=== PATIENT | male | born 1960 | race African-American/Black ===

== ENCOUNTER 2016-11-15 18:30 | Emergency (ER) | payer BC, OTHER ==
[2016-11-15 18:57] VITALS: BP 155/95; PULSE 85; TEMP 98.5; BMI 28.2
--- NOTE | 2016-11-15 19:05 | PDOC ---
History of Present Illness - General History Source: Patient Exam Limitations: No Limitations - History of Present Illness Initial Comments: 11/15/16 19:23 The patient is a 56 year old male with a significant past medical history of HTN , who presents to the ED with sharp LLQ pain. He describes the pain as 7/10 in severity. Patient states he is experiencing cold sweats and nausea secondary due to the pain. Patient complains of diarrhea since Tuesday as well. Patient denies fever. Patient denies vomiting, diarrhea, hematochezia. Patient denies sick contacts, recent travels. Patient was scheduled for a colonoscopy 6 months ago after having blood in stool. He missed his appointment and never rescheduled. PAST MEDICAL HISTORY: HTN PAST SURGICAL HISTORY: no significant history FAMILY HISTORY: no pertinent history SOCIAL HISTORY: Pt lives with family and is employed. MEDICATIONS: reviewed ALLERGIES: As per nursing notes ROS: General: + cold sweats. No fevers no weakness, no weight loss HEENT: No change in vision. No sore throat,. No ear pain CardioVascular: No chest pain or shortness of breath Respiratory:No cough, or wheezing. Gastrointestinal: + LLQ pain. + nausea. + diarrhea. No vomiting or constipation , No rectal bleeding Genitourinary: No dysuria, hematuria, or frequency Musculoskeletal: No joint or muscle pain or swelling Neurologic: No headache, vertigo, dizziness or loss of consciousness Psychiatric: nor depression Skin: No rashes or easy bruising Endocrine: no increased thirst or abnormal weight change Allergic: no skin or latex allergy All other systems reviewed and normal Exam: General: Well-nourished well-developed individual, no acute distress HEENT: Throat: Normal, tonsils normal, no erythema or exudate Neck: Supple, no meningeal signs, no lymphadenopathy Eyes::Pupils equal reactive and round, extraocular motion intact Chest: Nontender to palpation Cardiac: S1-S2 normal, regular rate and rhythm, no murmurs rubs or gallops Respiratory: Lungs clear to auscultation bilateral Abdomen: Increased bowel sounds. Soft, nondistended, nontender to palpation diffusely Extremities: Warm, dry, no cyanosis, clubbing, or edema Skin: No rashes Neuro: Alert and oriented x3, nonfocal exam, grossly intact, normal gait Psych: Normal mood and affect <Asad Perez - Last Filed: 11/15/16 19:32> - General History Source: Patient Exam Limitations: No Limitations - History of Present Illness Initial Comments: 11/15/16 20:56 A portion of this note was documented by scribe services under my direction. I have reviewed the details of the note, within reason, and agree with the documentation. The case summary and management plan written by me. Abdominal flat and upright films show no dilated loops of bowel but a couple of small air fluid levels otherwise unremarkable CT scan of the abdomen shows a 5 x 2 rods shaped right mid ureteral stone. Assessment and plan: This is a 56-year-old male comes in complaining of left lower quadrant abdominal pain associated with some nausea. Patient is pain-free at this time and has been since he arrived here. Patient's pain is secondary to a kidney stone that is in the mid ureter. Patient given prescriptions for Percocet, Flomax, Zofran and a referral to a urologist. <Jaycob Ng I - Last Filed: 11/15/16 22:29> - General Chief Complaint: Diarrhea Stated Complaint: DIARRHEA WITH LEFT ABDOMINAL CRAMPING Time Seen by Provider: 11/15/16 19:04 Past History <Asad Perez - Last Filed: 11/15/16 19:32> - Past Medical History HTN: Yes (NON COMPLIANT) - Psycho/Social/Smoking Cessation Hx Anxiety: No Suicidal Ideation: No Smoking History: Never smoked Hx Alcohol Use: Yes (RARE) Drug/Substance Use Hx: No Substance Use Type: None <Jaycob Ng I - Last Filed: 11/15/16 22:29> - Past Medical History Allergies/Adverse Reactions: Allergies Allergy/AdvReac Type Severity Reaction Status Date / Time No Known Allergies Allergy Verified 11/15/16 18:51 Home Medications: Ambulatory Orders Lisinopril [Zestril] 2.5 mg PO DAILY 11/15/16 Ondansetron [Zofran *Odt*] 8 mg SL TID PRN #12 od.tablet 11/15/16 Oxycodone HCl/Acetaminophen [Percocet 5-325 mg Tablet] 1 tab PO Q4H PRN #12 tablet MDD 6 11/15/16 Tamsulosin HCl [Flomax] 0.4 mg PO DAILY #24 cap.er.24h 11/15/16 Review of Systems - Review of Systems Able to Perform ROS?: Yes <Asad Perez - Last Filed: 11/15/16 19:32> *Physical Exam - Vital Signs Last Vital Signs Temp Pulse Resp BP Pulse Ox 98.5 F 85 16 155/95 99 11/15/16 18:50 11/15/16 18:50 11/15/16 18:50 11/15/16 18:50 11/15/16 18:50 <Asad Perez - Last Filed: 11/15/16 19:32> - Vital Signs Last Vital Signs Temp Pulse Resp BP Pulse Ox 98.5 F 85 16 155/95 99 11/15/16 18:50 11/15/16 18:50 11/15/16 18:50 11/15/16 18:50 11/15/16 18:50 <Jaycob Ng I - Last Filed: 11/15/16 22:29> ED Treatment Course - LABORATORY CBC & Chemistry Diagram: 11/15/16 19:55 11/15/16 19:55 <Jaycob Ng I - Last Filed: 11/15/16 22:29> *DC/Admit/Observation/Transfer - Attestations Scribe Attestion: 11/15/16 19:25 Documentation prepared by Asad Perez, acting as diagnostic medical sonographer for Jaycob Ng MD. <Asad Perez - Last Filed: 11/15/16 19:32> - Discharge Dispostion Admit: No <Jaycob Ng I - Last Filed: 11/15/16 22:29> Diagnosis at time of Disposition: Kidney stone on left side - Discharge Dispostion Disposition: HOME Condition at time of disposition: Good - Referrals Referrals: Sanchez Escobar [Primary Care Provider] - - Patient Instructions Printed Discharge Instructions: Kidney Stones -- Adult Additional Instructions: For the pain take Percocet one tablet as often as every 4-6 hours if needed. For nausea take Zofran 1 tablet 3 times a day as needed. Take Flomax 1 tablet a day to help keep the urine flowing. Stay well hydrated. Follow-up with a urologist if you need a urologist call Dr. Escamilla at [phone] for an appointment. Return to the emergency department immediately with ANY new, persistent or worsening symptoms. Continue any medications as previously prescribed by your physician. You should follow up with your primary doctor as soon as possible regarding today's emergency department visit. . Please make sure your doctor reviews the results of your emergency evaluation. Thank you for coming to the Emergency Department today for your care. It was a pleasure to see you today. Please note that your evaluation is INCOMPLETE until you follow-up with your doctor.
[2016-11-15 19:49] LABS: URINE APPEARANCE Clear; URINE BILIRUBIN Negative (NEGATIVE); URINE BLOOD 1+ (NEGATIVE); URINE COLOR YELLOW; URINE GLUCOSE (UA) Trace (NEGATIVE); URINE KETONE Negative (NEGATIVE); URINE LEUK ESTERASE Negative (NEGATIVE); URINE NITRITE Negative (NEGATIVE); URINE PROTEIN Negative (NEGATIVE); URINE UROBILINOGEN 0.2 E.U/dl (0.2-1.0)
[2016-11-15 20:09] LABS: BASOPHIL 1.9 % (0-2.0); EOSINOPHIL 0.4 % (0-4.5); MCH 31.7 pg (25.7-33.7); MCHC 34.5 g/dl (32.0-35.9); MEAN PLT VOLUME 9.2 fl (7.5-11.1); NEUTROPHILS 81.7 % (42.8-82.8); PLATELET COUNT 201 K/MM3 (134-434); RDW 11.8 % (11.9-15.9); WHITE BLOOD COUNT 13.1 K/mm3 (4.0-10.0)
[2016-11-15 20:14] LABS: URINE BACTERIA FEW /hpf (NEGATIVE); URINE WBC 0-2 (3-5)
[2016-11-15 20:20] LABS: ALBUMIN 4.7 g/dl (3.5-5.0); ALK PHOS 105 U/L (32-92); ANION GAP 6 (8-16); BILIRUBIN,TOTAL 0.8 mg/dl (0.2-1.0); CALCIUM 9.2 mg/dl (8.4-10.2); CO2 27 mmol/L (22-28); CREATININE 1.1 mg/dl (0.6-1.3); GLUCOSE,RANDOM 188 mg/dl (74-106); SGOT/AST 45 U/L (10-42); SGPT/ALT 34 U/L (10-40); TOT PROT 7.4 g/dl (6.4-8.3)
== END 2016-11-15 22:35 | disposition home or self-care (01) ==
LOC: FER 18:30
DX: N23 Unspecified renal colic (principal); I10 Essential (primary) hypertension
CPT/HCPCS: 36415; 74020-TC; 74177-TC; 80053; 81003; 81015; 83690; 85025; 99282-25

== ENCOUNTER 2020-07-31 17:23 | Emergency (ER) | payer BC, OTHER ==
[2020-07-31 17:37] VITALS: TEMP 98; BMI 29.0
[2020-07-31] MEDS ORDERED: amLODIPine BESYLATE 10 MG TABLET (FP) PO ONE (17:59)
[2020-07-31] MEDS ORDERED: amLODIPine BESYLATE 5 MG TABLET (FP) ONE (18:01)
[2020-07-31 18:32] LABS: INR 1.07 (0.83-1.09); PROTHROMBIN TIME (PATIENT) 12.9 SEC (9.7-13.0)
[2020-07-31 18:34] LABS: BASO % 1.8 % (0-2.0); EOS % 2.3 % (0-4.5); HEMATOCRIT 46.4 % (35.4-49); HEMOGLOBIN 15.9 GM/dL (11.7-16.9); LYMPH % 28.2 % (8-40); MCH 32.1 pg (25.7-33.7); MCHC 34.3 g/dl (32.0-35.9); MEAN CELL VOLUME 93.7 fl (80-96); MEAN PLT VOLUME 9.9 fl (7.5-11.1); NEUT % 61.7 % (42.8-82.8); PLATELET COUNT 168 K/MM3 (134-434); RBC 4.95 M/mm3 (4.00-5.60); RDW 13.1 % (11.9-15.9); WHITE BLOOD COUNT 7.2 K/mm3 (4.0-10.0)
[2020-07-31 18:42] LABS: POTASSIUM 3.9 mmol/L (3.5-5.1)
[2020-07-31 18:45] LABS: BLOOD UREA NITROGEN 10.8 mg/dL (7-18); CALCIUM 9.2 mg/dL (8.5-10.1)
[2020-07-31 18:48] LABS: CREATININE 1.1 mg/dL (0.55-1.3)
[2020-07-31 18:50] LABS: BILIRUBIN,TOTAL 0.4 mg/dL (0.2-1); TOT PROT 7.2 g/dl (6.4-8.2)
[2020-07-31] MEDS ORDERED: INSULIN REGULAR HUMAN 100 UNITS/ML *VIAL SQ ONE (18:56)
[2020-07-31 20:44] VITALS: BP 148/88; PULSE 77
== END 2020-07-31 21:45 | disposition home or self-care (01) ==
LOC: JER 17:23
PROC: 3E023GC Introduction of Other Therapeutic Substance into Muscle, Percutaneous Approach (ICD-10-PCS; principal; 2020-07-31)
DX: R07.9 Chest pain, unspecified (principal); I10 Essential (primary) hypertension; E11.9 Type 2 diabetes mellitus without complications; V49.40XA Driver injured in collision with unspecified motor vehicles in traffic accident, initial encounter
CPT/HCPCS: 36415; 71046-TC-FY; 80053; 82550; 82962; 84484; 85025; 85610; 93005; 93010; 99285-25

== ENCOUNTER 2021-07-15 11:05 | Emergency (ER) | payer SELFPAY ==
[2021-07-15 11:30] VITALS: BP 113/94; PULSE 86; TEMP 99; BMI 28.2
[2021-07-15 12:45] LABS: BILIRUBIN,TOTAL 1.2 mg/dl (0.2-1); CALCIUM 9.1 mg/dl (8.5-10); CREATININE 1.4 mg/dl (0.55-1.3); TOT PROT 6.6 g/dl (6.4-8.2)
[2021-07-15 14:30] LABS: BASO % 0.3 % (0-2.0); EOS % 0.3 % (0-4.5); HEMATOCRIT 46.3 % (35.4-49); HEMOGLOBIN 16.1 GM/dL (11.7-16.9); LYMPH % 19.7 % (8-40); MCH 32.2 pg (25.7-33.7); MCHC 34.8 g/dl (32.0-35.9); MEAN CELL VOLUME 92.4 fl (80-96); MEAN PLT VOLUME 9.7 fl (7.5-11.1); MONO % 11.2 % (3.8-10.2); NEUT % 68.5 % (42.8-82.8); PLATELET COUNT 186 10^3/uL (134-434); WHITE BLOOD COUNT 10.2 K/mm3 (4.0-10.0)
== END 2021-07-15 15:01 | disposition home or self-care (01) ==
LOC: FER 11:05
DX: R07.9 Chest pain, unspecified (principal); R73.9 Hyperglycemia, unspecified
CPT/HCPCS: 36415; 71045-TC-FY; 80053; 82550; 82553; 84484; 85025; 93005; 99285-25

== ENCOUNTER 2023-12-24 22:01 | Emergency (ER) | payer OTHER ==
[2023-12-24 22:17] VITALS: BP 148/94; PULSE 94; RESP 18; TEMP 99; BMI 25.9
[2023-12-24] MEDS ORDERED: ONDANSETRON 4 MG/2 ML VIAL ONE (22:27)
[2023-12-24] MEDS ORDERED: KETOROLAC TROMETHAMINE 30 MG/1 ML VIAL ONE (22:27)
[2023-12-24] MEDS: KETOROLAC TROMETHAMINE 30 MG/1 ML VIAL IVPUSH ONE (22:30)
[2023-12-24] MEDS: SODIUM CHLORIDE 0.9% 500 ML INFUS.BAG IV ONE (22:30)
[2023-12-24] MEDS: ONDANSETRON 4 MG/2 ML VIAL IVPB ONE (22:30)
[2023-12-24 22:49] LABS: HEMATOCRIT 44.3 % (35.4-49); HEMOGLOBIN 14.9 G/dL (11.7-16.9); MCH 31.6 pg (25.7-33.7); MCHC 33.6 g/dl (32.0-35.9); MEAN CELL VOLUME 93.9 fl (80-96); MEAN PLT VOLUME 9.3 fl (7.5-11.1); PLATELET COUNT 167.7 10^3/uL (134-434); RBC 4.72 10^6/uL (4.00-5.60); RDW 13.2 % (11.9-15.9); WHITE BLOOD COUNT 10.2 10^3/uL (4.0-10.8)
[2023-12-24 22:51] LABS: PLATELET ESTIMATE ADEQUATE
[2023-12-24 22:59] LABS: ALBUMIN 4.5 g/dl (3.4-5.0); BILIRUBIN,TOTAL 0.7 mg/dl (0.2-1); CALCIUM 9.9 mg/dl (8.5-10.1); CREATININE 1.2 mg/dl (0.6-1.3)
[2023-12-24 23:01] LABS: POTASSIUM 4.4 mmol/L (3.5-5.1)
[2023-12-24 23:14] LABS: CALCIUM OXALATE CRYSTALS FEW /hpf (NONE SEEN)
== END 2023-12-25 02:57 | disposition home or self-care (01) ==
LOC: FER 22:01
PROC: 3E0333Z Introduction of Anti-inflammatory into Peripheral Vein, Percutaneous Approach (ICD-10-PCS; principal; 2023-12-24)
PROC: 3E033GC Introduction of Other Therapeutic Substance into Peripheral Vein, Percutaneous Approach (ICD-10-PCS; 2023-12-24)
DX: N20.0 Calculus of kidney (principal); R10.9 Unspecified abdominal pain; R11.0 Nausea
CPT/HCPCS: 36415; 74177-TC; 80053; 81003; 81015; 85027; 87086; 93005; 99285-25; Q9967